=== PATIENT | female | born 1965 | race Caucasian/White ===

== ENCOUNTER 2020-10-08 05:48 | Outpatient (RCR) | payer BC, MEDICARE ==
[~2020-10-08] VITALS: Ht 165.1 cm; Wt 99.1 kg
[2020-10-08] MEDS ORDERED: RT-ALBUINH IH (13:31)
[2020-10-08] MEDS ORDERED: PROP50TA2 PO (13:31)
[2020-10-08] MEDS ORDERED: FEXO1TAB43 PO (13:31)
== END 2020-10-08 13:34 | disposition home or self-care (01) ==
LOC: PREOP 05:48
PROVIDERS: ATTEND Surgery
DX: Z01.818 Encounter for other preprocedural examination (principal)

== ENCOUNTER → 2020-10-12 | Outpatient (CLI) | payer MEDICARE ==
[~2020-10-12] MED LIST: FEXO1TAB43 PO; PROP50TA2 PO; RT-ALBUINH IH
== END ==
LOC: LAB FS 09:01
PROVIDERS: ATTEND Surgery
DX: Z01.812 Encounter for preprocedural laboratory examination (principal); K21.9 Gastro-esophageal reflux disease without esophagitis; Z20.828 Contact with and (suspected) exposure to other viral communicable diseases
CPT/HCPCS: 87635

== ENCOUNTER 2020-10-15 08:47 | Day surgery (SDC) | payer BC, MEDICARE ==
[~2020-10-15] VITALS: Ht 165.1 cm; Wt 99.1 kg
[2020-10-15] MEDS ORDERED: LACTATED RINGERS 1,000 ML IV ONE (08:49)
--- NOTE | 2020-10-15 08:56 | Progress Note-Pre Operative ---
Pre-Operative Progress Note H&P Reviewed The H&P was reviewed, patient examined and no changes noted. Time Seen by Provider: 08:53 Date H&P Reviewed: Oct 15, 2020 Time H&P Reviewed: 08:51 Pre-Operative Diagnosis: Screening colonoscopy, Gastritis, Bloating MARY JANE ADEN DO Oct 15, 2020 08:56
[2020-10-15] MEDS ORDERED: LACTATED RINGERS 1,000 ML IV STA (09:07)
[2020-10-15 09:12] VITALS: BP 128/97
[2020-10-15] MEDS ORDERED: HURRICAINE EXT TUBE (BENZOCAINE) XX PRN (09:15)
[2020-10-15] MEDS ORDERED: HURRICAINE EXT TUBE (BENZOCAINE) ONE (10:01)
[2020-10-15] MEDS ORDERED: MIDAZOLAM 2 MG/2 ML (VERSED) VIAL ONE (10:14)
[2020-10-15] MEDS ORDERED: PROPOFOL INJECTION 50 ML IV ONE (10:14)
[2020-10-15 10:40] VITALS: BP 115/67
[2020-10-15 10:45] VITALS: BP 123/66
--- NOTE | 2020-10-15 10:45 | Progress Note-Post Operative ---
Post-Operative Progess Note Surgeon (s)/Radio Engineer (s) Surgeon MARY JANE ADEN DO Radio Engineer: none Pre-Operative Diagnosis Screening colonoscopy, Gastritis, Bloating Post-Operative Diagnosis Gastritis Esophagitis Diverticula Int Hemorrhoids Procedure & Operative Findings Date of Procedure 10/15/20 Procedure Performed/Findings EGD with bx Colonoscopy Anesthesia Type IV sedation by CREAM DUMPER Estimated Blood Loss Estimated blood loss (mL): scant Specimens/Packing Specimens Removed antral bx body of stomach bx GE jxn bx MARY JANE ADEN DO Oct 15, 2020 10:45
--- NOTE | 2020-10-15 10:47 | Endoscopy Discharge Instruct ---
Endo Procedure/Findings Findings 1.: Gastritis, Other Findings (Esophagitis) 2.: Diverticulosis 3.: Internal Hemorrhoids Discharge Instructions - Activity: You might feel a little sleepy until tomorrow. This is due to the medicine you received to relax you. Until tomorrow, you should: NOT drive a car, operate machinery or power tools. NOT drink any alcoholic beverages. NOT make any important decisions or sign importortant papers. Do not return to work until tomorrow, unless otherwise instructed. Resume previous activities tomorrow. Diet: Start by taking liquids. If you tolerate liquids, advance to solid food. 1.: Colonscopy in 10 years 2.: EGD in 3 years Notify Physician - If you experience excessive bleeding, unusual abdominal pain, fever, or chest pain, contact your doctor immediately. MARY JANE ADEN DO Oct 15, 2020 10:47
[2020-10-15 10:50] VITALS: BP 120/70
[2020-10-15 11:15] VITALS: BP 120/70
[2020-10-15 11:30] VITALS: BP 120/70
--- NOTE | 2020-10-15 12:23 | Anesthesia-General Post-Op ---
MAC Patient Condition Mental Status/LOC: Same as Preop Cardiovascular: Satisfactory Nausea/Vomiting: Absent Respiratory: Satisfactory Pain: Controlled Complications: Absent Post Op Complications Complications None Follow Up Care/Instructions Patient Instructions None needed. Anesthesiology Discharge Order Discharge Order Patient is doing well, no complaints, stable vital signs, no apparent adverse anesthesia problems. No complications reported per nursing. SHARI DONNELLY CRNA Oct 15, 2020 12:23
--- NOTE | 2020-10-15 21:32 | OPERATIVE REPORT ---
DATE OF SERVICE: PREOPERATIVE DIAGNOSES: Gastritis and screening colonoscopy. POSTOPERATIVE DIAGNOSES: Gastritis, esophagitis as well as diverticula, internal hemorrhoids. PROCEDURES: 1. EGD with biopsy. 2. Colonoscopy. SURGEON: Ra Haney DO PSYCHOLOGIST CLINICAL: None. ANESTHESIA: IV sedation by the DAIRY HUSBANDMAN. SPECIMEN: Biopsy from antrum, biopsy of body of stomach, biopsy from the GE junction. BLOOD LOSS: Scant. FLUIDS: Per anesthesia. POSTOPERATIVE CONDITION: Stable. INDICATION FOR PROCEDURE: The patient is a 55-year-old female, who has been having some gastritis and also needs a screening colonoscopy. FINDINGS: The patient had some gastritis, esophagitis, some small like diverticula and some internal hemorrhoids, but no other obvious pathology. PROCEDURE NOTE: After informed consent was obtained, the patient was brought to the endoscopy suite, placed in bed in left lateral decubitus position. She was administered IV sedation by the DAIRY HUSBANDMAN who then monitored her vitals the entire time, heart rate, blood pressure and pulse ox. Scope was inserted. We started with the EGD, placing scope down the mouth through the esophagus and into the stomach. Upon entry, noted some mild inflammation, pushed into the duodenum. Duodenum looked fine. Pulled back, did a biopsy of the antrum. Retroflexed the scope, saw little bit more inflammation, did a biopsy, then pulled the scope into the GE junction, looked like there is some possible esophagitis, took a picture, and then did a biopsy of the GE junction, then pushed the scope into the stomach, suctioned all the air out and then pulled the scope up the esophagus and out the mouth. Switched camera, switched gloves, went down below, started the colonoscopy, pushed in all the way to about 150 cm. She had a lot of diverticula in the colon, able to get to the cecum, took a picture of appendiceal orifice and then actually able to get into the terminal ileum, took a picture, then slowly withdrew the scope insufflating the circumferential chaudhari looking the cecum, up the ascending colon. In the ascending colon, saw a large lipoma, but did not look like a polyp. Continued up to the hepatic flexure, then down the transverse colon, the splenic flexure, into the descending colon down to the sigmoid and finally into the rectum, retroflexed in the rectal vault, saw some small internal hemorrhoids, possibly early grade I, took a picture and then removed the scope. The patient tolerated the procedure. She was recovered in endoscopy suite. Job ID: [id number] DocumentID: [id number] Dictated Date: 10/15/2020 15:03:23 Loose Hand Packer Date: 10/15/2020 21:31:55 Dictated By: RA HANEY DO
== END 2020-10-15 11:30 | disposition home or self-care (01) ==
LOC: ENDO 08:47
PROVIDERS: ATTEND Surgery
DX: Z12.11 Encounter for screening for malignant neoplasm of colon (principal); K57.30 Diverticulosis of large intestine without perforation or abscess without bleeding; K64.8 Other hemorrhoids; K29.50 Unspecified chronic gastritis without bleeding; K21.00 Gastro-esophageal reflux disease with esophagitis, without bleeding; J45.909 Unspecified asthma, uncomplicated; M19.90 Unspecified osteoarthritis, unspecified site; E03.9 Hypothyroidism, unspecified; K59.00 Constipation, unspecified; E66.9 Obesity, unspecified; Z68.36 Body mass index [BMI] 36.0-36.9, adult; Z79.899 Other long term (current) drug therapy; Z90.710 Acquired absence of both cervix and uterus; Z90.49 Acquired absence of other specified parts of digestive tract; Z83.3 Family history of diabetes mellitus; Z80.9 Family history of malignant neoplasm, unspecified
CPT/HCPCS: 43239; G0121

== ENCOUNTER 2021-02-11 05:35 | Outpatient (RCR) | payer MEDICARE ==
[~2021-02-11] VITALS: Ht 165.1 cm; Wt 103.8 kg
== END 2021-02-13 11:51 | disposition home or self-care (01) ==
LOC: PREOP 05:35 → EDSTATUS 11:00 → PREOP 02-13 11:51
PROVIDERS: ATTEND Surgery
DX: Z01.818 Encounter for other preprocedural examination (principal)

== ENCOUNTER → 2021-02-15 | Outpatient (CLI) | payer MEDICARE | LOC: LAB FS 10:50 | PROVIDERS: ATTEND Surgery | DX: Z01.812 Encounter for preprocedural laboratory examination (principal); K22.70 Barrett's esophagus without dysplasia; Z20.822 Contact with and (suspected) exposure to COVID-19 | CPT/HCPCS: 87635 ==

== ENCOUNTER 2021-02-18 07:59 | Day surgery (SDC) | payer MEDICARE ==
[~2021-02-18] VITALS: Ht 165 cm; Wt 104.0 kg
[2021-02-18] VITALS (8 sets, daily range): BP systolic 109–120; BP diastolic 66–77
[2021-02-18] MEDS ORDERED: LACTATED RINGERS 1,000 ML IV ONE (08:02)
[2021-02-18] MEDS ORDERED: LACTATED RINGERS 1,000 ML IV STA (08:09)
[2021-02-18] MEDS ORDERED: HURRICAINE EXT TUBE (BENZOCAINE) XX PRN (08:15)
--- NOTE | 2021-02-18 08:48 | Progress Note-Pre Operative ---
Pre-Operative Progress Note H&P Reviewed The H&P was reviewed, patient examined and no changes noted. Time Seen by Provider: 08:45 Date H&P Reviewed: Feb 18, 2021 Time H&P Reviewed: 08:45 Pre-Operative Diagnosis: Palacio's Esophagus MARY JANE ADEN DO Feb 18, 2021 08:48
[2021-02-18] MEDS ORDERED: PROPOFOL INJECTION 50 ML IV ONE (09:19)
[2021-02-18] MEDS ORDERED: MIDAZOLAM 2 MG/2 ML (VERSED) VIAL ONE (09:19)
--- NOTE | 2021-02-18 09:38 | Progress Note-Post Operative ---
Post-Operative Progess Note Surgeon (s)/Air Carrier Maintenance Inspector (s) Surgeon MARY JANE ADEN DO Air Carrier Maintenance Inspector: none Pre-Operative Diagnosis Palacio's Esophagus Post-Operative Diagnosis Gastritis Hiatal hernia Esophagitis Procedure & Operative Findings Date of Procedure 02/18/21 Procedure Performed/Findings EGD with bx Anesthesia Type IV sedation by THERAPEUTIC ACTIVITIES SERVICES WORKER Estimated Blood Loss Estimated blood loss (mL): scant Specimens/Packing Specimens Removed body of stomach x 2 GE jxn x 2 MARY JANE ADEN DO Feb 18, 2021 09:38
--- NOTE | 2021-02-18 09:39 | Endoscopy Discharge Instruct ---
Endo Procedure/Findings Findings 1.: Gastritis 2.: Hiatal Hernia Discharge Instructions - Activity: You might feel a little sleepy until tomorrow. This is due to the medicine you received to relax you. Until tomorrow, you should: NOT drive a car, operate machinery or power tools. NOT drink any alcoholic beverages. NOT make any important decisions or sign importortant papers. Do not return to work until tomorrow, unless otherwise instructed. Resume previous activities tomorrow. Diet: Start by taking liquids. If you tolerate liquids, advance to solid food. 1.: EGD in 1 year Notify Physician - If you experience excessive bleeding, unusual abdominal pain, fever, or chest pain, contact your doctor immediately. MARY JANE ADEN DO Feb 18, 2021 09:39
--- NOTE | 2021-02-18 12:35 | Anesthesia-General Post-Op ---
MAC Patient Condition Mental Status/LOC: Same as Preop Cardiovascular: Satisfactory Nausea/Vomiting: Absent Respiratory: Satisfactory Pain: Controlled Complications: Absent Post Op Complications Complications None Follow Up Care/Instructions Patient Instructions None needed. Anesthesiology Discharge Order Discharge Order Patient is doing well, no complaints, stable vital signs, no apparent adverse anesthesia problems. No complications reported per nursing. HALLE PATEL CRNA Feb 18, 2021 12:35
--- NOTE | 2021-02-19 13:53 | OPERATIVE REPORT ---
DATE OF SERVICE: 02/18/2021 PREOPERATIVE DIAGNOSIS: History of Palacio's esophagus. POSTOPERATIVE DIAGNOSES: Gastritis, hiatal hernia, and esophagitis. PROCEDURE: EGD with biopsy. SURGEON: Ra Haney DO HEAD OF ETHICS AND COMPLIANCE: None. ANESTHESIA: IV sedation by the IT TECHNICAL ARCHITECT. SPECIMEN: Biopsy from body of stomach, biopsy from the body of stomach closest to the GE junction and then 2 biopsies of the GE junction. BLOOD LOSS: Scant. FLUIDS: Per anesthesia. POSTOPERATIVE CONDITION: Stable. INDICATION FOR PROCEDURE: The patient is a 55-year-old female with a history of Palacio's esophagus and needed a followup. FINDINGS: The patient had some gastritis, hiatal hernia, esophagitis. Couple biopsies done, sent to pathology. PROCEDURE NOTE: After informed consent was obtained, the patient was brought to the endoscopy suite, placed in bed in left lateral decubitus position. She was administered IV sedation by the IT TECHNICAL ARCHITECT who then monitored his vitals the entire time, heart rate, blood pressure and pulse ox and the scope was inserted down the mouth through the esophagus at the GE junction, noted some changes here, took a picture, pushed into the stomach, saw some gastritis and did a biopsy just at the site of the antrum, retroflexed the scope, saw a small hiatal hernia and then did a biopsy closest to the GE junction of the body of stomach, then pulled the scope into the GE junction, took another picture of the changes and Z line moving up and then did two biopsies of the GE junction, pushed the scope back into the stomach, suctioned all the air out and then pulled the scope up the esophagus and out the mouth. The upper portion of the esophagus looked fine. The patient tolerated the procedure. She was recovered in endoscopy suite. Job ID: [id number] DocumentID: [id number] Dictated Date: 02/19/2021 10:18:43 Asbestos Removal Worker Date: 02/19/2021 13:53:15 Dictated By: RA HANEY DO
== END 2021-02-18 10:40 | disposition home or self-care (01) ==
LOC: ENDO 07:59
PROVIDERS: ATTEND Surgery
DX: K29.50 Unspecified chronic gastritis without bleeding (principal); K44.9 Diaphragmatic hernia without obstruction or gangrene; K21.00 Gastro-esophageal reflux disease with esophagitis, without bleeding; D48.5 Neoplasm of uncertain behavior of skin; K22.70 Barrett's esophagus without dysplasia; E66.9 Obesity, unspecified; Z68.38 Body mass index [BMI] 38.0-38.9, adult; Z79.899 Other long term (current) drug therapy; Z90.710 Acquired absence of both cervix and uterus; Z90.49 Acquired absence of other specified parts of digestive tract
CPT/HCPCS: 88305

== ENCOUNTER → 2022-05-07 | Outpatient (CLI) | payer MEDICARE ==
[~2022-05-07] MED LIST changes: +HOLD METFORMIN - RECEIVED CONTRAST 20 ML VIAL IV SCH; +IOHEXOL 350 MG/ML 100 ML (OMNIPAQUE 350) VIAL IV ONE; +NS 100 ML (IVPB) BAG IV ONE
[2022-05-07] MEDS: CATHETER FLUSH 10 ML SYR IV PRN ×2 (14:05→14:18)
--- NOTE | 2022-05-07 17:57 | Diagnostic Imaging Report ---
CLINICAL INDICATION: Patient with dysphagia and voice changes. Patient has history of lesion on thyroid per patient. EXAM: Axial CT scan of the neck soft tissue performed with 75 mL of Omnipaque 350 IV contrast. Sagittal and coronal reformatted images are created. Auto Exposure Controls were utilized during the CT exam to meet ALARA standards for radiation dose reduction. COMPARISON: None. FINDINGS: Streak artifact obscures thyroid gland there are gland is now well visualized. There is slight prominence of the left posterior and nasopharyngeal adenoid soft tissue. There is no measurable mass. Otherwise oropharynx, hypopharynx, and laryngeal soft tissue structures are unremarkable. There is no lymphadenopathy. Salivary glands are unremarkable. There is atelectasis involving the posterior aspects of both lungs. There are degenerative spurs involving the cervical spine. Limited visualization of the intracranial structures show no significant abnormality. Orbits and globes are unremarkable. There is mild mucosal thickening involving the ethmoid sinus. Mastoid air cells are clear. IMPRESSION: 1.: There is slight prominence the left posterior nasopharyngeal adenoid soft tissue region with no measurable mass. Given the degree of asymmetry, direct visualization is suggested for further evaluation. 2: The remainder of the neck soft tissue structures are unremarkable. There is no lymphadenopathy. 3: The thyroid gland is not well visualized on this exam and partially obscured. If necessary, thyroid ultrasound would better evaluate. Dictated by: Dictated on workstation # [id number]
== END ==
LOC: RAD FS 13:43
PROVIDERS: ATTEND Family Medicine
DX: R13.10 Dysphagia, unspecified (principal)
CPT/HCPCS: 70491; Q9967

== ENCOUNTER → 2022-06-05 | Outpatient (CLI) | payer MEDICARE ==
[~2022-06-05] MED LIST changes: -HOLD METFORMIN - RECEIVED CONTRAST 20 ML VIAL IV SCH; -IOHEXOL 350 MG/ML 100 ML (OMNIPAQUE 350) VIAL IV ONE; -NS 100 ML (IVPB) BAG IV ONE
== END | disposition home or self-care (01) ==
LOC: PREOP 05:28
PROVIDERS: ATTEND Otolaryngology Otolaryngology/Facial Plastic Surgery
DX: Z01.818 Encounter for other preprocedural examination (principal)